=== PATIENT | female | born 1965 | race Caucasian/White ===

== ENCOUNTER 2025-06-13 09:21 | Inpatient (IN) | payer MEDICAID, OTHER ==
[~2025-06-13] VITALS: Ht 167.6 cm; Wt 68.6 kg
[2025-06-13] MEDS ORDERED: LUMA21CA PO (09:49)
[2025-06-13] MEDS ORDERED: HYDR-5256 PO (09:49)
[2025-06-13 09:54] LABS: PLATELET COUNT (AUTO) 335 K/uL (150-450); RED BLOOD CELL COUNT(AUTO) 4.94 MIL/uL (4.00-5.20); RED CELL DISTRIBUTION WIDTH 12.7 % (11.5-14.5); WHITE BLOOD COUNT (AUTO) 9.6 K/uL (4.5-11.0)
[2025-06-13 09:57] LABS: COVID AG,FIA SOURCE NASAL SWAB
[2025-06-13 10:00] LABS: CALCIUM, TOTAL 8.9 mg/dL (8.8-10.5); CREATININE 0.70 mg/dL (0.60-1.30); GLOMERULAR FILTR. RATE CALC > 60 mL/min (>60); GLUCOSE,RANDOM 138 mg/dL (70-110); SODIUM SERUM 141 mmol/L (136-145); UREA NITROGEN, BLOOD 18 mg/dL (7-18)
[2025-06-13 10:22] LABS: SARS-COV2 (COVID) ANTIGEN,FIA Negative (Negative)
[2025-06-13] MEDS: POTASSIUM CHLORIDE 20 MEQ ER TABLET PO ONE (22:30)
[2025-06-14] MEDS ORDERED: LORazepam 2 MG/ML VIAL ONE ×2 (01:09→12:20)
[2025-06-14 01:26] VITALS: O2SAT 97
[2025-06-14] MEDS ORDERED: BACITRACIN 0.9 GM PACKET OINTMENT TP ONE (04:47)
[2025-06-14 06:08] VITALS: BP 115/64; PULSE 61; RESP 17; TEMP 97.6; O2SAT 98
[2025-06-14] MEDS ORDERED: ALBUTEROL SULFATE HFA 90 MCG/PUFF 8 GM INHALER IH PRN (06:30)
[2025-06-14] MEDS ORDERED: GuaiFENesin/D-METHORPHAN [SUGAR-FREE] 200-20MG/10 ML SYRUP UDCUP PO PRN (06:30)
[2025-06-14] MEDS ORDERED: PETROLATUM,WHITE 28 GM JELLY TP PRN (06:30)
[2025-06-14] MEDS ORDERED: NICOTINE 14 MG/24 HOUR PATCH TD PRN (06:30)
[2025-06-14] MEDS ORDERED: DOCUSATE SODIUM 100 MG CAPSULE PO PRN (06:30)
[2025-06-14] MEDS ORDERED: ONDANSETRON 4 MG TABLET PO PRN (06:30)
[2025-06-14] MEDS ORDERED: MAGNESIUM HYDROXIDE SUSPENSION 30 ML UDCUP PO PRN (06:30)
[2025-06-14 08:00] VITALS: RESP 16
[2025-06-14] MEDS: LORazepam 2 MG/ML VIAL IM ONE ×2 (12:31→23:25)
[2025-06-14 13:17] VITALS: RESP 16
[2025-06-15] MEDS: LORazepam 2 MG/ML VIAL IM ONE (10:28)
[2025-06-16] MEDS: LORazepam 2 MG/ML VIAL IM ONE ×2 (08:15→13:40)
[2025-06-16 08:19] VITALS: RESP 18
[2025-06-16 15:20] VITALS: BP 146/116; PULSE 112; RESP 16; TEMP 97.9; O2SAT 97
[2025-06-16 15:25] VITALS: BP 119/95; PULSE 85; RESP 16; TEMP 97; O2SAT 98
[2025-06-16 15:45] VITALS: BP 119/95; PULSE 85; RESP 16; TEMP 97; O2SAT 98
[2025-06-16 23:41] VITALS: BP 118/70; PULSE 80; RESP 16; TEMP 97.1; O2SAT 98
[2025-06-16 23:44] VITALS: BP 118/70; PULSE 80; RESP 16; TEMP 97.1; O2SAT 98
[2025-06-17 08:02] VITALS: RESP 18
[2025-06-17] MEDS: LORazepam 2 MG/ML VIAL IM ONE (09:49)
[2025-06-17 20:29] VITALS: RESP 18
[2025-06-18 08:00] VITALS: RESP 16
[2025-06-18 08:25] VITALS: BP 108/76; PULSE 90; RESP 18; TEMP 98.1; O2SAT 98
[2025-06-18] MEDS: POTASSIUM CHLORIDE 20 MEQ ER TABLET PO ONE (12:28)
[2025-06-18] MEDS: LOPERAMIDE HCL 2 MG CAPSULE PO PRN (14:08)
[2025-06-18] MEDS: ACETAMINOPHEN 325 MG TABLET PO PRN (18:59)
[2025-06-18 20:28] VITALS: BP 110/75; PULSE 85; RESP 18; TEMP 97.5; O2SAT 98
[2025-06-19 09:14] VITALS: RESP 18
[2025-06-19 11:12] VITALS: RESP 18
[2025-06-19] MEDS: IBUPROFEN 400 MG TABLET PO PRN (11:12)
[2025-06-19 12:12] VITALS: RESP 18
[2025-06-19 20:12] VITALS: RESP 18
[2025-06-19] MEDS: ZOLPIDEM TARTRATE 10 MG TABLET PO PRN (22:47)
[2025-06-20 08:23] VITALS: RESP 17
[2025-06-20] MEDS ORDERED: LORazepam 2 MG/ML VIAL ONE (09:21)
[2025-06-20] MEDS: LORazepam 2 MG/ML VIAL IM ONE (09:39)
[2025-06-20] MEDS: DIVALPROEX SODIUM 500 MG DR TABLET PO SCH (09:45)
[2025-06-21 03:35] VITALS: RESP 18
[2025-06-21] MEDS: LORazepam 2 MG/ML VIAL IM ONE ×2 (08:41→10:55)
[2025-06-21 09:00] VITALS: RESP 18
[2025-06-21] MEDS: DIVALPROEX SODIUM 500 MG DR TABLET PO SCH (16:44)
[2025-06-21 21:16] VITALS: BP 111/84; PULSE 124; RESP 18; TEMP 98.5; O2SAT 95
[2025-06-22] MEDS: MAG HYDROX/ALUMINUM HYD/SIMETH ES 30 ML SUSPENSION UDCUP PO PRN (00:38)
[2025-06-22 09:30] VITALS: RESP 17
[2025-06-22] MEDS ORDERED: OLAN10TA74 PO (09:50)
== END 2025-06-22 16:20 | disposition still patient (30) | DRG 751 ==
LOC: EMS 09:23 → B3A 06-14 01:22 → B2S 06-21 20:15
PROVIDERS: ADMIT Psychiatry & Neurology Child & Adolescent Psychiatry; ATTEND Psychiatry & Neurology Child & Adolescent Psychiatry
PROC: GZ56ZZZ Individual Psychotherapy, Supportive (ICD-10-PCS; 2025-06-14)
PROC: GZ58ZZZ Individual Psychotherapy, Cognitive-Behavioral (ICD-10-PCS; 2025-06-14)
PROC: GZ52ZZZ Individual Psychotherapy, Cognitive (ICD-10-PCS; 2025-06-15)
PROC: GZHZZZZ Group Psychotherapy (ICD-10-PCS; principal; 2025-06-16)
DX: F33.2 Major depressive disorder, recurrent severe without psychotic features (principal); R45.851 Suicidal ideations; E87.6 Hypokalemia; F41.9 Anxiety disorder, unspecified; R73.9 Hyperglycemia, unspecified; Z20.822 Contact with and (suspected) exposure to COVID-19; G47.00 Insomnia, unspecified; F60.3 Borderline personality disorder; F15.10 Other stimulant abuse, uncomplicated; F16.10 Hallucinogen abuse, uncomplicated; F17.210 Nicotine dependence, cigarettes, uncomplicated
CPT/HCPCS: 80048; 84132; 85025; 99285; G0480; J1200; J1630; J2060; J3230

== ENCOUNTER 2025-06-16 16:14 | Emergency (ER) | payer MEDICAID, OTHER ==
[~2025-06-16] VITALS: Ht 162.6 cm; Wt 68.2 kg
[~2025-06-16 16:14] MED LIST: HYDR-5256 PO; LUMA21CA PO
[2025-06-16 18:01] VITALS: TEMP 97.8
[2025-06-16] MEDS: LIDOCAINE 1% 10 ML VIAL SQ ONE (19:11)
[2025-06-16] MEDS: LORazepam 2 MG/ML VIAL IM ONE (19:14)
[2025-06-16] MEDS: BACITRACIN 0.9 GM PACKET OINTMENT TP ONE (21:13)
[2025-06-16 21:14] VITALS: BP 127/67; PULSE 72; RESP 18; O2SAT 95
== END 2025-06-16 23:15 | disposition home or self-care (01) ==
LOC: EMS 16:14
DX: S01.01XA Laceration without foreign body of scalp, initial encounter (principal); F31.9 Bipolar disorder, unspecified; F41.9 Anxiety disorder, unspecified; F12.90 Cannabis use, unspecified, uncomplicated; F17.210 Nicotine dependence, cigarettes, uncomplicated; F15.90 Other stimulant use, unspecified, uncomplicated; F60.3 Borderline personality disorder; Z90.49 Acquired absence of other specified parts of digestive tract; Z98.51 Tubal ligation status; Z79.899 Other long term (current) drug therapy; W19.XXXA Unspecified fall, initial encounter; Y93.89 Activity, other specified; Y92.89 Other specified places as the place of occurrence of the external cause; Y99.8 Other external cause status
CPT/HCPCS: 99285; 70450; 72125; 12002; 96372; J2060; J3490